=== PATIENT | female | born 1935 | race Native Hawaiian/Other Pacific Islander ===

== ENCOUNTER 2016-12-12 08:27 | Outpatient (CLI) | payer OTHER, MEDICARE | END 2016-12-12 21:00 | disposition home or self-care (01) | LOC: CT 08:27 | DX: R41.82 Altered mental status, unspecified (principal); R42 Dizziness and giddiness; F03.90 Unspecified dementia, unspecified severity, without behavioral disturbance, psychotic disturbance, mood disturbance, and anxiety ==

== ENCOUNTER 2022-01-16 14:56 | Outpatient (CLI) | payer OTHER, MEDICARE | END 2022-01-16 19:22 | disposition home or self-care (01) | LOC: US 14:56 | PROVIDERS: ATTEND Internal Medicine | DX: N83.8 Other noninflammatory disorders of ovary, fallopian tube and broad ligament (principal); R22.9 Localized swelling, mass and lump, unspecified ==

== ENCOUNTER 2022-02-13 21:12 | Emergency (ER) | payer OTHER, MEDICARE ==
[~2022-02-13] VITALS: Ht 167.6 cm; Wt 67.6 kg
[2022-02-13 21:52] LABS: PLATELET COUNT 162 K/uL (152-353)
[2022-02-13 21:56] LABS: POTASSIUM 3.9 mmol/L (3.6-5.2)
[2022-02-13 22:10] LABS: PARTIAL THROMBOPLASTIN TIME 23.8 SECONDS (24.5-33.6)
[2022-02-14 01:00] VITALS: BP 180/87; TEMP 98.4
== END 2022-02-14 01:00 | disposition home or self-care (01) ==
LOC: ED 21:12
PROVIDERS: Hospitalist
DX: S00.03XA Contusion of scalp, initial encounter (principal); S09.8XXA Other specified injuries of head, initial encounter; G30.8 Other Alzheimer's disease; F02.80 Dementia in other diseases classified elsewhere, unspecified severity, without behavioral disturbance, psychotic disturbance, mood disturbance, and anxiety; G25.2 Other specified forms of tremor; M25.551 Pain in right hip; I70.0 Atherosclerosis of aorta; W01.198A Fall on same level from slipping, tripping and stumbling with subsequent striking against other object, initial encounter; Y92.098 Other place in other non-institutional residence as the place of occurrence of the external cause
CPT/HCPCS: 80053; 80320; 82550; 83880; 84484; 85027; 85610; 85730; 93005; 96374; 96375; 99284; J1885; J2405

== ENCOUNTER 2022-03-16 07:53 | Observation (INO) | payer OTHER, MEDICARE ==
[2022-03-16] VITALS (7 sets, daily range): BP systolic 115–128; BP diastolic 53–80; TEMP 96.1–98.3; Ht 167.6 cm; Wt 68.5 kg
[~2022-03-16] VITALS: Ht 167.6 cm; Wt 68.5 kg
[2022-03-16 08:16] LABS: PLATELET COUNT 172 K/uL (152-353)
[2022-03-16 08:31] LABS: POTASSIUM 3.7 mmol/L (3.6-5.2)
[2022-03-16] MEDS ORDERED: DONEPEZIL HYDRO10 MG PO (13:48)
[2022-03-16] MEDS ORDERED: AMLODIPINE BESYLATE PO (13:50)
[2022-03-16] MEDS ORDERED: ENOX40IN SC (13:51)
[2022-03-16] MEDS ORDERED: EUTHYROX50 MCG PO (13:52)
[2022-03-16] MEDS ORDERED: MEMANTINE HYDRO10 MG PO (13:54)
[2022-03-16] MEDS ORDERED: MELATONIN5 M2 PO (13:54)
[2022-03-16] MEDS ORDERED: ALPR0.5T24 PO (13:55)
[2022-03-16] MEDS ORDERED: HYDR5TAB9 PO (13:56)
[2022-03-17] VITALS: BP 120/45; TEMP 98.9
[2022-03-17 04:00] VITALS: BP 140/73; TEMP 99.4
[2022-03-17 08:00] VITALS: BP 124/60; TEMP 97.7
[2022-03-17 11:38] VITALS: BP 120/56; TEMP 98.5
[2022-03-17 15:44] VITALS: BP 139/55; TEMP 98.3
[2022-03-17 19:27] VITALS: BP 120/56; TEMP 98.1
[2022-03-18] VITALS: BP 137/66; TEMP 97.6
[2022-03-18 04:00] VITALS: BP 137/81; TEMP 97.9
[2022-03-18 07:54] VITALS: BP 139/59; TEMP 98.8
== END 2022-03-18 09:50 ==
LOC: ED 07:53 → MED/SURG 10:10
PROVIDERS: ADMIT Emergency Medicine; ATTEND Internal Medicine
DX: J18.8 Other pneumonia, unspecified organism (principal); R26.89 Other abnormalities of gait and mobility; R05.8 Other specified cough; I10 Essential (primary) hypertension; N13.2 Hydronephrosis with renal and ureteral calculous obstruction; G30.8 Other Alzheimer's disease; F02.80 Dementia in other diseases classified elsewhere, unspecified severity, without behavioral disturbance, psychotic disturbance, mood disturbance, and anxiety; E03.8 Other specified hypothyroidism; M54.89 Other dorsalgia; S00.83XA Contusion of other part of head, initial encounter; W18.39XA Other fall on same level, initial encounter; Y92.238 Other place in hospital as the place of occurrence of the external cause
CPT/HCPCS: 80048; 81002; 85027; 87040; 87635; 93005; 96365; 96366; 99220; 99284; G0378; J1956; U0003

== ENCOUNTER 2022-03-22 08:05 | Inpatient (IN) | payer OTHER, MEDICARE ==
[~2022-03-22 08:05] MED LIST: ALPR0.5T24 PO; AMLODIPINE BESYLATE PO; DONEPEZIL HYDRO10 MG PO; ENOX40IN SC; EUTHYROX50 MCG PO; HYDR5TAB9 PO; MELATONIN5 M2 PO; MEMANTINE HYDRO10 MG PO
[2022-04-07 16:31] LABS: PLATELET COUNT 252 K/uL (152-353)
[2022-04-07 16:55] LABS: POTASSIUM 4.2 mmol/L (3.6-5.2)
== END 2022-04-21 10:00 | disposition home or self-care (01) ==
LOC: PAVB 08:05
PROVIDERS: ADMIT Internal Medicine; ATTEND Internal Medicine
DX: S72.044D Nondisplaced fracture of base of neck of right femur, subsequent encounter for closed fracture with routine healing (principal); F02.80 Dementia in other diseases classified elsewhere, unspecified severity, without behavioral disturbance, psychotic disturbance, mood disturbance, and anxiety; M62.81 Muscle weakness (generalized); Z74.1 Need for assistance with personal care; R48.8 Other symbolic dysfunctions; R26.2 Difficulty in walking, not elsewhere classified
CPT/HCPCS: 80053; 81000; 85027

== ENCOUNTER 2022-05-31 12:05 | Outpatient (CLI) | payer OTHER, MEDICARE | END 2022-05-31 19:13 | disposition home or self-care (01) | LOC: LAB 12:05 | PROVIDERS: ATTEND Nurse Practitioner Family | DX: R30.0 Dysuria (principal); N39.0 Urinary tract infection, site not specified | CPT/HCPCS: 81002; 87086; 87088 ==